=== PATIENT | male | born 1980 | race Caucasian/White ===

== ENCOUNTER 2016-08-14 09:35 | Emergency (ER) | payer OTHER ==
[2016-08-14] MEDS ORDERED: MAALOX/LIDO2%VISC/SIMETHICONE 40 ML BOT ONE (10:40)
[2016-08-14] MEDS ORDERED: ONDANSETRON 4 MG/2ML 2 ML VIAL ONE (10:40)
[2016-08-14] MEDS ORDERED: SODIUM CHLORIDE 0.9% 1,000 ML ONE (10:40)
[2016-08-14] MEDS ORDERED: PANTOPRAZOLE SODIUM 40 MG VIAL IV ONE (10:40)
[2016-08-14] MEDS ORDERED: METOCLOPRAMIDE HCL 5 MG/ML 2ML VIAL ONE (10:41)
[2016-08-14] MEDS ORDERED: DIPHENHYDRAMINE HCL 50 MG/1 ML VIAL ONE (10:41)
[2016-08-14 10:52] LABS: ABSOLUTE NEUTROPHIL COUNT 5.4 K/mm3 (1.8-7.7); BASO % 0.4 % (0.2-1.0); EOS # 0.1 (0.0-0.5); EOS % 1.2 % (0.9-2.9); HEMATOCRIT 44.2 % (32.0-52.0); HEMOGLOBIN 14.4 gm/l (14.0-18.0); IMM NEUT% 0.4 % (0-1); LYMPH # 1.6 (1.0-4.8); LYMPH % 21.2 % (15-45); MEAN CELL VOLUME 82.9 fl (80.0-94.0); MEAN CORPUSCULAR HGB CONC 32.6 g/dl (33.0-37.0); MEAN PLATELET VOLUME 8.2 fl (7.4-10.4); MONO # 0.3 (0.0-0.8); MONO % 4.3 % (4-12); NEUT % 72.5 % (43-75); PLATELET COUNT 251 K/mm3 (130-400)
[2016-08-14 11:11] LABS: ALB/GLOB RATIO 1.4 (>1.0); ALBUMIN 4.2 gm/dL (3.5-5.7); CALCIUM 9.3 mg/dL (8.6-10.3)
== END 2016-08-14 13:03 | disposition home or self-care (01) ==
LOC: ED 09:35
DX: E86.0 Dehydration (principal); R10.9 Unspecified abdominal pain; G43.909 Migraine, unspecified, not intractable, without status migrainosus; R19.7 Diarrhea, unspecified
CPT/HCPCS: 83690; 85025; 80053; 85651; 96375 ×3; 99283 ×2; 96374; J1200; A9270; C9113; J2765; J2405; J7030